=== PATIENT | male | born 1980 | race Caucasian/White ===

== ENCOUNTER 2017-04-19 11:22 | Emergency (ER) | payer MEDICAID ==
[2017-04-19 11:45] VITALS: TEMP 98.9
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
--- NOTE | 2017-04-19 12:50 | RAD ---
PROCEDURE: Left Foot Radiographs. HISTORY: foot pain s/p injury yesterday COMPARISON: None. FINDINGS: BONES: Normal. No fracture. JOINTS: Normal. SOFT TISSUES: Normal. OTHER FINDINGS: None. IMPRESSION: Normal left foot radiographs.
[2017-04-19 13:29] VITALS: BP 120/80; PULSE 85; RESP 17; O2SAT 100
== END 2017-04-19 13:38 | disposition home or self-care (01) ==
LOC: ED 11:22
DX: S99.922A Unspecified injury of left foot, initial encounter (principal); W01.0XXA Fall on same level from slipping, tripping and stumbling without subsequent striking against object, initial encounter; Y93.01 Activity, walking, marching and hiking; Y92.89 Other specified places as the place of occurrence of the external cause
CPT/HCPCS: 73630; 96372; 99284; J1885

== ENCOUNTER 2017-12-05 20:31 | Inpatient (IN) | payer MEDICAID ==
[2017-12-05] MEDS ORDERED: Iohexol 240 (50 ml) ONE (22:17)
--- NOTE | 2017-12-05 22:37 | ED PDOC ---
Arrival/HPI - General Chief Complaint: GI Problem Time Seen by Provider: 12/05/17 21:35 Historian: Patient - History of Present Illness Narrative History of Present Illness (Text): 12/05/17 22:05 37 year old male, whose past medical history includes history of blood stool (1 year ago), presents to the emergency department complaining of blood in the stool yesterday and today. Patient reports similar symptoms one year ago and states he stopped eating red meat which resolved symptoms, but has not had red meat since. Patient states it might haven been from the dye from red potatoes chips he ate earlier. Patient denies any fever, chills, chest pain, shortness of breath, abdominal pain, nausea, vomiting, diarrhea, urinary symptoms, back pain, neck pain, headache, dizziness, or any other complaints. Time/Duration: Other (2 days) Symptom Onset: Sudden Symptom Course: Unchanged Activities at Onset: Light Context: Home Past Medical History - Provider Review Nursing Documentation Reviewed: Yes - Infectious Disease Hx of Infectious Diseases: None - Tetanus Immunization Tetanus Immunization: Unknown - Psychiatric Hx Substance Use: No - Anesthesia Hx Anesthesia: No Family/Social History - Physician Review Nursing Documentation Reviewed: Yes Family/Social History: No Known Family HX Smoking Status: Current Some Days Smoker Hx Alcohol Use: Yes Hx Substance Use: No Allergies/Home Meds Allergies/Adverse Reactions: Allergies No Known Allergies Allergy (Verified 04/19/17 11:45) Home Medications: Home Meds Medication Instructions Recorded Confirmed No Known Home Med 12/05/17 12/05/17 Review of Systems - Physician Review All systems were reviewed & negative as marked: Yes - Review of Systems Constitutional: absent: Fevers, Other (Chills) Respiratory: absent: SOB Cardiovascular: absent: Chest Pain Gastrointestinal: Hematochezia. absent: Abdominal Pain, Diarrhea, Nausea, Vomiting Genitourinary Male: absent: Dysuria, Frequency, Hematuria Musculoskeletal: absent: Back Pain, Neck Pain Neurological: absent: Headache, Dizziness Physical Exam Vital Signs Reviewed: Yes Vital Signs Temp Pulse Resp BP Pulse Ox 12/05/17 21:18 97.7 F 76 18 143/92 H 98 Temperature: Afebrile Blood Pressure: Hypertensive Pulse: Regular Respiratory Rate: Normal Appearance: Positive for: Well-Appearing, Non-Toxic, Comfortable Pain Distress: None Mental Status: Positive for: Alert and Oriented X 3 - Systems Exam Head: Present: Atraumatic, Normocephalic Pupils: Present: PERRL Extroacular Muscles: Present: EOMI Conjunctiva: Present: Normal Mouth: Present: Moist Mucous Membranes Neck: Present: Normal Range of Motion Respiratory/Chest: Present: Clear to Auscultation, Good Air Exchange. No: Respiratory Distress, Accessory Muscle Use Cardiovascular: Present: Regular Rate and Rhythm, Normal S1, S2. No: Murmurs Abdomen: No: Tenderness, Distention, Peritoneal Signs Rectal: No: Hemorrhoids, Fissures Back: Present: Normal Inspection Upper Extremity: Present: Normal Inspection. No: Cyanosis, Edema Lower Extremity: Present: Normal Inspection. No: Edema Neurological: Present: GCS=15, CN II-XII Intact, Speech Normal Skin: Present: Warm, Dry, Normal Color. No: Rashes Psychiatric: Present: Alert, Oriented x 3, Normal Insight, Normal Concentration Medical Decision Making ED Course and Treatment: 12/05/17 22:10 Impression: 37 year old male presents complaining of blood in the stool that began yesterday. Patient reports similar symptoms 1 year ago. Plan: -- VBG -- CT Abd and Pelvis PO & IV Contrast -- Labs -- Blood Culture -- Urinalysis -- Reassess and disposition Progress Notes: EXAM: CT Abdomen and Pelvis With Intravenous Contrast Dictated and Authenticated by: Bony Christy MD 12/06/2017 12:10 AM IMPRESSION: 1. Diverticulosis without definite CT evidence of diverticulitis. 2. Groundglass opacities, nonspecific. DDX: Pneumonia, pulmonary edema, interstitial lung disease, pneumonitis. Clinical correlation and follow up are recommended. 3. Mild lymphadenopathy, nonspecific. Clinical correlation is needed. 4. Incidental/non-acute findings are described above. 12/06/17 00:[address] Adams who is aware and agrees with the plan. Accepts patient into his service. - Lab Interpretations Lab Results: 12/05/17 22:50 12/05/17 22:50 Lab Results 12/05/17 22:50: Sodium 142, Chloride 104, Potassium 4.5, Carbon Dioxide 25, Anion Gap 18, BUN 15, Creatinine 1.3, Est GFR ( Amer) > 60, Est GFR (Non- Af Amer) > 60, Random Glucose 82, Calcium 10.3, Total Bilirubin 1.2, AST 26, ALT 30, Alkaline Phosphatase 76, Total Protein 7.7, Albumin 4.6, Globulin 3.1, Albumin/Globulin Ratio 1.5, Lipase 127 12/05/17 22:50: pO2 91 H, VBG pH 7.39, VBG pCO2 45.0, VBG HCO3 27.2, VBG Total CO2 28.6 H, VBG O2 Sat (Calc) 98.6 H, VBG Base Excess 1.7, VBG Potassium 4.5, Sodium 137.0, Chloride 106.0, Glucose 85, Lactate 0.9, FiO2 21.0, Venous Blood Potassium 4.5 12/05/17 22:50: PT 11.2, INR 0.98 12/05/17 22:50: WBC 4.7, RBC 5.92, Hgb 17.1, Hct 49.8, MCV 84.1, MCH 28.9, MCHC 34.3, RDW 13.2, Plt Count 193, MPV 10.1, Gran % 55.5, Lymph % (Auto) 34.1, [place] % (Auto) 7.0 H, Eos % (Auto) 3.0, Baso % (Auto) 0.4, Gran # 2.60, Lymph # (Auto ) 1.6, [place] # (Auto) 0.3, Eos # (Auto) 0.1, Baso # (Auto) 0.02 I have reviewed the lab results: Yes - RAD Interpretation Radiology Orders: 12/05/17 22:16 ABD PELVIS PO & IV CONTRAST [CT] Stat - Scribe Statement The provider has reviewed the documentation as recorded by the Stef Gay Provider Scribe Attestation: All medical record entries made by the Stef were at my direction and personally dictated by me. I have reviewed the chart and agree that the record accurately reflects my personal performance of the history, physical exam, medical decision making, and the department course for this patient. I have also personally directed, reviewed, and agree with the discharge instructions and disposition. Disposition/Present on Arrival - Present on Arrival Any Indicators Present on Arrival: No History of DVT/PE: No History of Uncontrolled Diabetes: No Urinary Catheter: No History of Decub. Ulcer: No History Surgical Site Infection Following: None - Disposition Have Diagnosis and Disposition been Completed?: Yes Diagnosis: Lower GI bleeding, Diverticulosis, Interstitial lung disease Disposition: HOSPITALIZED Disposition Time: 00:43 Patient Plan: Admission Condition: GOOD Referrals: PCP,NO [Primary Care Provider] - Follow up with primary Forms: [employer] (Yoruba)
[2017-12-05 22:56] LABS: VENOUS BLOOD GAS BASE EXCESS 1.7 mmol/L (0.0-2.0); VENOUS BLOOD GAS PO2 91 mm/Hg (30-55); VENOUS BLOOD PH 7.39 (7.32-7.43)
[2017-12-05 22:58] LABS: BASO # 0.02 K/mm3 (0.0-2.0); BASO % 0.4 % (0.0-3.0); EOS # 0.1 (0.0-0.7); GRAN # 2.6 (1.4-6.5); GRAN % 55.5 % (50.0-68.0); HEMOGLOBIN 17.1 g/dL (14.0-18.0); LYMPH # 1.6 (1.2-3.4); LYMPH % 34.1 % (22.0-35.0); MEAN CELL VOLUME 84.1 fl (80.0-105.0); MEAN CORPUSCULAR HEMOGLOBIN 28.9 pg (25.0-35.0); MEAN CORPUSCULAR HGB CONC 34.3 g/dl (31.0-37.0); MEAN PLATELET VOLUME 10.1 fl (7.0-11.0); MONO # 0.3 (0.1-0.6); RBC 5.92 10^6/uL (3.5-6.1); RED CELL DISTRIBUTION WIDTH 13.2 % (11.5-14.5); WHITE BLOOD COUNT 4.7 10^3/ul (4.5-11.0)
[2017-12-05 23:04] LABS: INR 0.98 (0.93-1.08); PROTHROMBIN TIME 11.2 SECONDS (9.4-12.5)
[2017-12-05 23:07] LABS: ALB/GLOB RATIO 1.5 (1.1-1.8); ALBUMIN 4.6 g/dL (3.0-4.8); ALT/SGPT 30 U/L (7-56); AST/SGOT 26 U/L (17-59); BLOOD UREA NITROGEN 15 mg/dL (7-21); CALCIUM 10.3 mg/dL (8.4-10.5); GFR AFRICAN-AMERICAN > 60; GFR NON-AFRICAN AMERICAN > 60; LIPASE 127 U/L (23-300)
[2017-12-05] MEDS ORDERED: Iohexol 350 MG/100 ML VIAL ONE (23:10)
--- NOTE | 2017-12-06 00:10 | CT ---
EXAM: CT Abdomen and Pelvis With Intravenous Contrast CLINICAL HISTORY: 37 years old, male; Signs and symptoms; Other: Blood in stool 2x days; Additional info: Blood in stools TECHNIQUE: Axial computed tomography images of the abdomen and pelvis with intravenous contrast. All CT scans at this facility use one or more dose reduction techniques, viz.: automated exposure control; ma/kV adjustment per patient size (including targeted exams where dose is matched to indication; i.e. head); or iterative reconstruction technique. Coronal and sagittal reformatted images were created and reviewed. CONTRAST: 100 mL of OMNI 350 administered intravenously. COMPARISON: No relevant prior studies available. FINDINGS: Lung bases: Mild peripheral linear atelectasis/scarring. Scattered groundglass opacities within lung bases, uncertain chronicity. Mediastinum: Probable small hiatal hernia. ABDOMEN: Liver: Unremarkable. No mass. Gallbladder and bile ducts: No calcified stones. No ductal dilation. Pancreas: No ductal dilation. No mass. Spleen: No splenomegaly. Adrenals: No mass. Kidneys and ureters: No mass. No hydronephrosis. Stomach and bowel: Few scattered diverticula within colon. No associated inflammatory stranding. Few segmental areas of probable underdistention of colon. No definite mural thickening. No obstruction. Appendix: Normal caliber. No inflammation. PELVIS: Bladder: Unremarkable. Reproductive: Unremarkable as visualized. ABDOMEN and PELVIS: Intraperitoneal space: No significant fluid collection. No free air. Bones/joints: No acute fracture. Soft tissues: Small umbilical hernia containing fat. Tiny inguinal hernias containing fat. Vasculature: Unremarkable. No aneurysm. Lymph nodes: Several subcentimeter/few borderline enlarged short axis lymph node within upper abdomen. IMPRESSION: 1. Diverticulosis without definite CT evidence of diverticulitis. 2. Groundglass opacities, nonspecific. DDX: Pneumonia, pulmonary edema, interstitial lung disease, pneumonitis. Clinical correlation and follow up are recommended. 3. Mild lymphadenopathy, nonspecific. Clinical correlation is needed. 4. Incidental/non-acute findings are described above.
[2017-12-06] MEDS ORDERED: Sodium Chloride 0.9% 1,000 ML IV SCH ×2 (04:30→04:47)
--- NOTE | 2017-12-06 04:43 | CP.PCM.HP ---
<Lacey Funk - Last Filed: 12/06/17 05:14> History of Present Illness - History of Present Illness History of Present Illness: Lacey Funk, PGY1, H&P for Dr Adams: Admission: Rectal Bleeding, Possible Ruptured Diverticulum, Ground Glass interstitial Pulmonary Disease. CC: "bright red blood in stool" 37 year old male with no significant PMH presents for hematochezia for past two days. Pt states that he had bright red stool mixed with his stools, and noticed it on the toilet tissue when wiping after a BM. Pt has had similar episodes a year ago. Pt states that he used to eat steak at that time, and the symptoms resolved after he stopped eating steak. Pt was never evaluated by a doctor at that time. Denies melena, hemorrhoids, history of constipation, abdominal pain, rectal pain, tenesmus, nausea, vomiting, hematemesis, fever, chills, weakness, cp, sob, weakness, dizziness, recent travel. No prior EGD or colonoscopy. In ED, vitals stable. Hgb 17.1. rectal exam showed + bright red blood in rectal vault (no stool), normal rectal tone. CT abd pelvis showed diverticulosis. 12 point ROS obtained and negative, except as per HPI. PMD: [place] (in [place]) PMH: denies PSH: denies All: NKA FH: denies colon or other GI cancer SH: Lives with fiance. Social ETOH use. Daily marijuana user x 10 years. Denies other illicit drug or tobacco use. Present on Admission - Present on Admission Any Indicators Present on Admission: No History of DVT/PE: No History of Uncontrolled Diabetes: No Urinary Catheter: No Decubitus Ulcer Present: No Review of Systems - Review of Systems All systems: reviewed and no additional remarkable complaints except Review of Systems: as per HPI Past Patient History - Infectious Disease Hx of Infectious Diseases: None - Tetanus Immunizations Tetanus Immunization: Unknown - Past Social History Smoking Status: Current Some Days Smoker - PSYCHIATRIC Hx Substance Use: No - SURGICAL HISTORY Hx Surgeries: No - ANESTHESIA Hx Anesthesia: No Meds Allergies/Adverse Reactions: Allergies Allergy/AdvReac Type Severity Reaction Status Date / Time No Known Allergies Allergy Verified 04/19/17 11:45 Physical Exam - Constitutional Appears: Non-toxic, No Acute Distress - Head Exam Head Exam: ATRAUMATIC, NORMOCEPHALIC - Eye Exam Eye Exam: EOMI, PERRL. absent: Conjunctival injection, Nystagmus, Scleral icterus Pupil Exam: NORMAL ACCOMODATION, PERRL. absent: Irregular, Miosis, Mydriatic, Unequal - ENT Exam ENT Exam: Mucous Membranes Moist - Neck Exam Neck exam: Positive for: Full Rom - Respiratory Exam Respiratory Exam: Clear to Auscultation Bilateral, NORMAL BREATHING PATTERN. absent: Accessory Muscle Use, Chest Wall Tenderness, Rales, Rhonchi, Wheezes, Stridor - Cardiovascular Exam Cardiovascular Exam: RRR, +S1, +S2. absent: Bradycardia, Tachycardia, Systolic Murmur - GI/Abdominal Exam GI & Abdominal Exam: Normal Bowel Sounds, Soft. absent: Diminished Bowel Sounds , Distended, Firm, Guarding, Mass, Organomegaly, Rebound, Rigid, Tenderness - Expanded Rectal Exam Expanded Expanded Rectal Exam: Bloody Stool, Hemorrhoids (+ small internal hemorrhoids ( slightly boggy)), Heme(+)Stool, NORMAL RECTAL TONE, Tenderness (+ discomfort). absent: Fecal Impaction, Laceration, Mass - Extremities Exam Extremities exam: Positive for: normal inspection. Negative for: calf tenderness, pedal edema - Back Exam Back exam: NORMAL INSPECTION. absent: CVA tenderness (L), CVA tenderness (R) - Neurological Exam Neurological exam: Alert, Oriented x3 - Psychiatric Exam Psychiatric exam: Normal Affect, Normal Mood - Skin Skin Exam: Dry, Normal Color, Warm Results - Vital Signs Recent Vital Signs: Last Vital Signs Temp 98.1 F 12/06/17 01:05 Pulse 67 12/06/17 03:53 Resp 18 12/06/17 03:53 BP 118/66 12/06/17 03:53 Pulse Ox 99 12/06/17 03:53 - Labs Result Diagrams: 12/05/17 22:50 12/05/17 22:50 Assessment & Plan - Assessment and Plan (Free Text) Assessment: 37 year old male with prior rectal bleed, presents for hematochezia: Painless Hematochezia: 2/2 diverticular bleeding vs internal hemorrhoids - NPO - IVF - Protonix - Anusol, sitz bath - GI consult. F/u recs. Likely outpatient follow up. PPX: protonix, SCDs Discussed with Dr Adams. - Date & Time Date: 12/06/17 Time: 04:43 <Elmer Adams - Last Filed: 12/06/17 06:54> Results - Vital Signs Recent Vital Signs: Last Vital Signs Temp 98.1 F 12/06/17 01:05 Pulse 67 12/06/17 03:53 Resp 18 12/06/17 03:53 BP 118/66 12/06/17 03:53 Pulse Ox 99 12/06/17 03:53 - Labs Result Diagrams: 12/05/17 22:50 12/05/17 22:50 Attending/Attestation - Attestation I have personally seen and examined this patient.: Yes I have fully participated in the care of the patient.: Yes I have reviewed all pertinent clinical information: Yes Notes (Text): 12/06/17 06:48 Patient was seen when he was in bed # 19 in the ER. Agree with history , physical examination , assessment and plan.
[2017-12-06 08:41] LABS: URINE APPEARANCE CLEAR (CLEAR); URINE BILIRUBIN SMALL (NEGATIVE); URINE BLOOD NEGATIVE (NEGATIVE); URINE COLOR YELLOW (YELLOW); URINE GLUCOSE (UA) NEGATIVE (NEGATIVE); URINE LEUKOCYTE ESTERASE NEGATIVE Leu/uL (NEGATIVE); URINE PROTEIN NEGATIVE mg/dL (<30 mg/dL); URINE UROBILINOGEN 0.2 E.U./dL (<1 E.U./dL)
[2017-12-06 09:37] LABS: BASO # 0.01 K/mm3 (0.0-2.0); BASO % 0.3 % (0.0-3.0); EOS # 0.2 (0.0-0.7); EOS % 4.3 % (1.5-5.0); GRAN # 1.8 (1.4-6.5); GRAN % 51.9 % (50.0-68.0); LYMPH # 1.2 (1.2-3.4); LYMPH % 33.4 % (22.0-35.0); MEAN CELL VOLUME 84.2 fl (80.0-105.0); MEAN CORPUSCULAR HEMOGLOBIN 28.2 pg (25.0-35.0); MEAN CORPUSCULAR HGB CONC 33.5 g/dl (31.0-37.0); MEAN PLATELET VOLUME 9.9 fl (7.0-11.0); MONO # 0.4 (0.1-0.6); MONO % 10.1 % (1.0-6.0); RBC 5.68 10^6/uL (3.5-6.1); RED CELL DISTRIBUTION WIDTH 13.5 % (11.5-14.5); WHITE BLOOD COUNT 3.5 10^3/ul (4.5-11.0)
--- NOTE | 2017-12-06 11:04 | CP.PCM.DIS ---
Provider - Provider Date of Admission: 12/06/17 00:35 Attending physician: Taurus Harrington MD Primary care physician: NO PRIMARY CARE PROVIDER Time Spent in preparation of Discharge (in minutes): 45 Diagnosis - Discharge Diagnosis (1) Diverticulosis Status: Chronic Priority: Medium (2) Lower GI bleeding Status: Acute Priority: Medium Hospital Course - Lab Results Lab Results: Most Recent Lab Values WBC 3.5 10^3/ul (4.5-11.0) L D 12/06/17 09:00 RBC 5.68 10^6/uL (3.5-6.1) 12/06/17 09:00 Hgb 16.0 g/dL (14.0-18.0) 12/06/17 09:00 Hct 47.8 % (42.0-52.0) 12/06/17 09:00 MCV 84.2 fl (80.0-105.0) 12/06/17 09:00 MCH 28.2 pg (25.0-35.0) 12/06/17 09:00 MCHC 33.5 g/dl (31.0-37.0) 12/06/17 09:00 RDW 13.5 % (11.5-14.5) 12/06/17 09:00 Plt Count 166 10^3/uL (120.0-450.0) 12/06/17 09:00 MPV 9.9 fl (7.0-11.0) 12/06/17 09:00 Gran % 51.9 % (50.0-68.0) 12/06/17 09:00 Lymph % (Auto) 33.4 % (22.0-35.0) 12/06/17 09:00 [place] % (Auto) 10.1 % (1.0-6.0) H 12/06/17 09:00 Eos % (Auto) 4.3 % (1.5-5.0) 12/06/17 09:00 Baso % (Auto) 0.3 % (0.0-3.0) 12/06/17 09:00 Gran # 1.80 (1.4-6.5) 12/06/17 09:00 Lymph # (Auto) 1.2 (1.2-3.4) 12/06/17 09:00 [place] # (Auto) 0.4 (0.1-0.6) 12/06/17 09:00 Eos # (Auto) 0.2 (0.0-0.7) 12/06/17 09:00 Baso # (Auto) 0.01 K/mm3 (0.0-2.0) 12/06/17 09:00 PT 11.2 SECONDS (9.4-12.5) 12/05/17 22:50 INR 0.98 (0.93-1.08) 12/05/17 22:50 pO2 91 mm/Hg (30-55) H 12/05/17 22:50 VBG pH 7.39 (7.32-7.43) 12/05/17 22:50 VBG pCO2 45.0 (40-60) 12/05/17 22:50 VBG HCO3 27.2 mmol/l (21-28) 12/05/17 22:50 VBG Total CO2 28.6 mmol.L (22-28) H 12/05/17 22:50 VBG O2 Sat (Calc) 98.6 % (40-65) H 12/05/17 22:50 VBG Base Excess 1.7 mmol/L (0.0-2.0) 12/05/17 22:50 VBG Potassium 4.5 mmol/L (3.6-5.2) 12/05/17 22:50 Sodium 137.0 mmol/L (132-148) 12/05/17 22:50 Chloride 106.0 mmol/L (98-107) 12/05/17 22:50 Glucose 85 mg/dl (75-110) 12/05/17 22:50 Lactate 0.9 mmol/L (0.7-2.1) 12/05/17 22:50 FiO2 21.0 % 12/05/17 22:50 Sodium 142 mmol/L (132-148) 12/05/17 22:50 Potassium 4.5 mmol/L (3.6-5.0) 12/05/17 22:50 Chloride 104 mmol/L (98-107) 12/05/17 22:50 Carbon Dioxide 25 mmol/L (21-33) 12/05/17 22:50 Anion Gap 18 (10-20) 12/05/17 22:50 BUN 15 mg/dL (7-21) 12/05/17 22:50 Creatinine 1.3 mg/dl (0.8-1.5) 12/05/17 22:50 Est GFR ( Amer) > 60 12/05/17 22:50 Est GFR (Non-Af Amer) > 60 12/05/17 22:50 Random Glucose 82 mg/dL (70-110) 12/05/17 22:50 Calcium 10.3 mg/dL (8.4-10.5) 12/05/17 22:50 Total Bilirubin 1.2 mg/dL (0.2-1.3) 12/05/17 22:50 AST 26 U/L (17-59) 12/05/17 22:50 ALT 30 U/L (7-56) 12/05/17 22:50 Alkaline Phosphatase 76 U/L (38-126) 12/05/17 22:50 Total Protein 7.7 g/dL (5.8-8.3) 12/05/17 22:50 Albumin 4.6 g/dL (3.0-4.8) 12/05/17 22:50 Globulin 3.1 gm/dL 12/05/17 22:50 Albumin/Globulin Ratio 1.5 (1.1-1.8) 12/05/17 22:50 Lipase 127 U/L (23-300) 12/05/17 22:50 Venous Blood Potassium 4.5 mmol/L (3.6-5.2) 12/05/17 22:50 Urine Color Yellow (YELLOW) 12/06/17 08:30 Urine Appearance Clear (CLEAR) 12/06/17 08:30 Urine pH 6.0 (4.7-8.0) 12/06/17 08:30 Ur Specific [place] 1.020 (1.005-1.035) 12/06/17 08:30 Urine Protein Negative mg/dL (<30 mg/dL) 12/06/17 08:30 Urine Glucose (UA) Negative mg/dL (NEGATIVE) 12/06/17 08:30 Urine Ketones Negative mg/dL (NEGATIVE) 12/06/17 08:30 Urine Blood Negative (NEGATIVE) 12/06/17 08:30 Urine Nitrate Negative (NEGATIVE) 12/06/17 08:30 Urine Bilirubin Small (NEGATIVE) H 12/06/17 08:30 Urine Urobilinogen 0.2 E.U./dL (<1 E.U./dL) 12/06/17 08:30 Ur Leukocyte Esterase Negative Mike/uL (NEGATIVE) 12/06/17 08:30 - Hospital Course Hospital Course: Patient is a 37 year old male with a past medical history of rectal bleed who was admitted for evaluation and treatment of bright red blood in stool. With the use of physical examinations, lab work, and imaging the patient was diagnosed with and treated for painless Hematochezia secondary to diverticular bleed vs internal hemorrhoids. During their hospital stay the patient was seen by gasteroenterogist (Dr. Hoffmann) and their recommendations were both appreciated and utilized in the care for this patient. Dr. Hoffmann recommended colonoscopy in the outpatient setting. During their hospital stay the patient underwent a CT of the abdomen/pelvis which was reviewed, appreciated, and utilized in the management of the patients clinical course. The CT of the abdomen/pelvis showed diverticulosis without evidence of diverticulitis, groundglass opacities, and mild lymphadenopathy. Patient was treated with ansuol, pantoprazole, and intravenous fluids. At this time the patient is tolerating diet, hemoglobin is stable, and is medically stable for discharge. Patient understands and appreciates discharge plan. Patient instructed to follow up with primary care physicians and referrals within three to five days from discharge. Furthermore, the patient is instructed to take medications as prescribed and to return to emergency room for evaluation of intractable headache, fever, chills, dizziness, chest pain, shortness of breath, abdominal pain, nausea, vomiting, diarrhea, constipation, and urinary symptoms. This is a brief summary of the patients hospital course. Please see patient chart for full details. Discharge Exam - Head Exam Head Exam: ATRAUMATIC, NORMOCEPHALIC - Additional Findings Additional findings: - Constitutional Appears: Non-toxic, No Acute Distress - Head Exam Head Exam: ATRAUMATIC, NORMOCEPHALIC - Eye Exam Eye Exam: EOMI, PERRL. absent: Conjunctival injection, Nystagmus, Scleral icterus - ENT Exam ENT Exam: Mucous Membranes Moist - Neck Exam Neck exam: Positive for: Full Rom - Respiratory Exam Respiratory Exam: Clear to Auscultation Bilateral, NORMAL BREATHING PATTERN. absent: Accessory Muscle Use, Chest Wall Tenderness, Rales, Rhonchi, Wheezes, Stridor - Cardiovascular Exam Cardiovascular Exam: RRR, +S1, +S2. absent: Bradycardia, Tachycardia, Systolic Murmur - GI/Abdominal Exam GI & Abdominal Exam: Normal Bowel Sounds, Soft. absent: Diminished Bowel Sounds , Distended, Firm, Guarding, Mass, Organomegaly, Rebound, Rigid, Tenderness - Extremities Exam Extremities exam: Positive for: normal inspection. Negative for: calf tenderness, pedal edema - Neurological Exam Neurological exam: Alert, Oriented x3 - Psychiatric Exam Psychiatric exam: Normal Affect, Normal Mood - Skin Skin Exam: Dry, Normal Color, Warm Discharge Plan - Follow Up Plan Condition: GOOD Disposition: HOME/ ROUTINE Patient education suggested?: Yes Instructions: Gastrointestinal Bleeding Additional Instructions: Patient Instructions: Take medications as prescribed. Follow up with PMD and referrals within three to five days from discharge. Return to the emergency room for evaluation of intractable headache, fever, chills, dizziness, chest pain, shortness of breath, abdominal pain, nausea, vomiting, diarrhea, constipation, and urinary symptoms. Referrals: PCP,NO [Primary Care Provider] -
--- NOTE | 2017-12-06 13:37 | CP.PCM.CON ---
<Jj Underwood - Last Filed: 12/06/17 13:32> History of Present Illness - History of Present Illness History of Present Illness: Initial PGY4 GI Consult Note Sloan Hodge is a 37M w/ no sig med hx who presented to the ER with rectal bleeding. Pt states that he has had similar episode 2 years ago and intermittently since. He denies any associated change in bowel habits or abd pain. He states that he noticed BRBPR upon defecation and mixed with the water in the toliet. Denies any constipation. He states that he has 2 Bm daily. Denies any prolapsing hemorrhoids. Denies any weightloss, nausea, or vomiting. Denies any previous colonoscopy or EGD. No new episodes since admission PMHx: none PShx: none Social hx: denies any smoking, + social drinker, denies any illicit drug use Family hx: reviewed, denies any hx of GI malignancy Endo hx: none ROS: 12 point ROS conducted, neg other than above Past Patient History - Infectious Disease Hx of Infectious Diseases: None - Tetanus Immunizations Tetanus Immunization: Unknown - Past Social History Smoking Status: Current Some Days Smoker - CARDIAC Hx Cardiac Disorders: No - PULMONARY Hx Respiratory Disorders: No - NEUROLOGICAL Hx Neurological Disorder: No - HEENT Hx HEENT Problems: No - RENAL Hx Chronic Kidney Disease: No - ENDOCRINE/METABOLIC Hx Endocrine Disorders: No - HEMATOLOGICAL/ONCOLOGICAL Hx Blood Disorders: No - INTEGUMENTARY Hx Dermatological Problems: No - MUSCULOSKELETAL/RHEUMATOLOGICAL Hx Musculoskeletal Disorders: No Hx Falls: No - GASTROINTESTINAL Hx Gastrointestinal Disorders: No Other/Comment: one year ago experienced bloody stools, eliminated red meats and it resolved - GENITOURINARY/GYNECOLOGICAL Hx Genitourinary Disorders: No - PSYCHIATRIC Hx Psychophysiologic Disorder: No Hx Substance Use: Yes (smokes marijuana occationally) - SURGICAL HISTORY Hx Surgeries: No - ANESTHESIA Hx Anesthesia: No Meds Home Medications: Home Medication List Medication Instructions Recorded Confirmed Type Hydrocortisone [Anusol-Hc] 25 mg RC BID #1 sup 12/06/17 Rx Allergies/Adverse Reactions: Allergies Allergy/AdvReac Type Severity Reaction Status Date / Time No Known Allergies Allergy Verified 04/19/17 11:45 - Medications Medications: Current Medications Hydrocortisone (Anusol-Hc) 25 mg RC BID QUETA Last Admin: 12/06/17 12:14 Dose: Not Given Sodium Chloride (Sodium Chloride 0.9%) 1,000 mls @ 125 mls/hr IV .Q8H [facility] Pantoprazole Sodium (Protonix Inj) 40 mg IVP DAILY [facility] Last Admin: 12/06/17 12:14 Dose: 40 mg Physical Exam - Constitutional Appears: Well, No Acute Distress - Head Exam Head Exam: ATRAUMATIC, NORMOCEPHALIC - Eye Exam Eye Exam: Normal appearance - ENT Exam ENT Exam: Mucous Membranes Moist, Normal Exam - Neck Exam Neck exam: Positive for: Normal Inspection - Respiratory Exam Respiratory Exam: Clear to Auscultation Bilateral, NORMAL BREATHING PATTERN. absent: Rales, Rhonchi, Wheezes, Respiratory Distress - Cardiovascular Exam Cardiovascular Exam: REGULAR RHYTHM, +S1, +S2 - GI/Abdominal Exam GI & Abdominal Exam: Normal Bowel Sounds, Soft. absent: Diminished Bowel Sounds , Distended, Guarding, Hernia, Organomegaly, Rebound, Rigid, Tenderness - Rectal Exam Additional comments: slight blood in rectal vault with stool - Extremities Exam Extremities exam: Negative for: joint swelling, pedal edema - Neurological Exam Neurological exam: Alert, Oriented x3 - Psychiatric Exam Psychiatric exam: Normal Affect, Normal Mood - Skin Skin Exam: Dry, Intact, Normal Color, Warm Results - Vital Signs Recent Vital Signs: Last Vital Signs Temp 97.8 F 12/06/17 08:06 Pulse 60 12/06/17 08:06 Resp 20 12/06/17 08:06 BP 110/70 12/06/17 08:06 Pulse Ox 100 12/06/17 08:06 - Labs Result Diagrams: 12/06/17 09:00 12/05/17 22:50 Labs: Laboratory Results - last 24 hr 12/06/17 12/06/17 08:30 09:00 WBC 3.5 L D RBC 5.68 Hgb 16.0 Hct 47.8 MCV 84.2 MCH 28.2 MCHC 33.5 RDW 13.5 Plt Count 166 MPV 9.9 Gran % 51.9 Lymph % (Auto) 33.4 [place] % (Auto) 10.1 H Eos % (Auto) 4.3 Baso % (Auto) 0.3 Gran # 1.80 Lymph # (Auto) 1.2 [place] # (Auto) 0.4 Eos # (Auto) 0.2 Baso # (Auto) 0.01 Urine Color Yellow Urine Appearance Clear Urine pH 6.0 Ur Specific [place] 1.020 Urine Protein Negative Urine Glucose (UA) Negative Urine Ketones Negative Urine Blood Negative Urine Nitrate Negative Urine Bilirubin Small H Urine Urobilinogen 0.2 Ur Leukocyte Esterase Negative Assessment & Plan - Assessment and Plan (Free Text) Assessment: Sloan Hodge is a 37M w/ no sig hx who presents to the ED with rectal bleeding. Rectal bleeding; etiology likely hemorrhoidal versus diverticular constipation diverticulosis on CT Plan: -start fiber supplement -advance diet to regular -recommend oupt colonoscopy -outpt contact information given -repeat hgb stable -recommend going to the ER if bleeding continues d/w lyle Warren <Gino Arevalo - Last Filed: 12/06/17 13:49> Meds - Medications Medications: Current Medications Hydrocortisone (Anusol-Hc) 25 mg RC BID [facility] Last Admin: 12/06/17 12:14 Dose: Not Given Sodium Chloride (Sodium Chloride 0.9%) 1,000 mls @ 125 mls/hr IV .Q8H [facility] Pantoprazole Sodium (Protonix Inj) 40 mg IVP DAILY [facility] Last Admin: 12/06/17 12:14 Dose: 40 mg Results - Vital Signs Recent Vital Signs: Last Vital Signs Temp 97.8 F 12/06/17 08:06 Pulse 60 12/06/17 08:06 Resp 20 12/06/17 08:06 BP 110/70 12/06/17 08:06 Pulse Ox 100 12/06/17 08:06 - Labs Result Diagrams: 12/06/17 09:00 12/05/17 22:50 Labs: Laboratory Results - last 24 hr 12/06/17 12/06/17 08:30 09:00 WBC 3.5 L D RBC 5.68 Hgb 16.0 Hct 47.8 MCV 84.2 MCH 28.2 MCHC 33.5 RDW 13.5 Plt Count 166 MPV 9.9 Gran % 51.9 Lymph % (Auto) 33.4 [place] % (Auto) 10.1 H Eos % (Auto) 4.3 Baso % (Auto) 0.3 Gran # 1.80 Lymph # (Auto) 1.2 [place] # (Auto) 0.4 Eos # (Auto) 0.2 Baso # (Auto) 0.01 Urine Color Yellow Urine Appearance Clear Urine pH 6.0 Ur Specific [place] 1.020 Urine Protein Negative Urine Glucose (UA) Negative Urine Ketones Negative Urine Blood Negative Urine Nitrate Negative Urine Bilirubin Small H Urine Urobilinogen 0.2 Ur Leukocyte Esterase Negative Attending/Attestation - Attestation I have personally seen and examined this patient.: Yes I have fully participated in the care of the patient.: Yes I have reviewed all pertinent clinical information: Yes Notes (Text): 12/06/17 13:48 37 year old male with BRBPR, likely hemorrhoidal. No anemia. Recommend outpatient colonoscopy.
[2017-12-06 15:38] VITALS: RESP 18; O2SAT 95
[2017-12-06 15:41] VITALS: BP 156/87; PULSE 104; TEMP 98.5
== END 2017-12-06 18:15 | disposition home or self-care (01) | DRG 175 ==
LOC: ED 20:31 → ERH 12-06 00:35 → 5RSO 12-06 04:11
PROVIDERS: ADMIT Internal Medicine; ATTEND Internal Medicine
DX: K92.1 Melena (principal); K57.90 Diverticulosis of intestine, part unspecified, without perforation or abscess without bleeding; K64.8 Other hemorrhoids; F17.200 Nicotine dependence, unspecified, uncomplicated; R59.0 Localized enlarged lymph nodes; F12.90 Cannabis use, unspecified, uncomplicated; K59.00 Constipation, unspecified

== ENCOUNTER 2018-02-26 08:55 | Emergency (ER) | payer OTHER, MEDICAID ==
[2018-02-26 09:07] VITALS: RESP 18
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
--- NOTE | 2018-02-26 10:32 | RAD ---
PROCEDURE: Radiographs of the right elbow. HISTORY: Injury COMPARISON: No prior. FINDINGS: BONES: Normal. No fracture. JOINTS: Normal. No osteoarthritis. SOFT TISSUES: Anterior and posterior fat pad signs. Presumptive evidence for radial head fracture. However common no discrete fracture line identified. JOINT EFFUSION: None. OTHER FINDINGS: None. IMPRESSION: Soft tissue swelling, soft tissue injury including positive fat pad signs presumptive evidence for radial head fracture although no fracture is seen. Recommend follow-up radiographs in 07-10 days if clinically indicated.
--- NOTE | 2018-02-26 10:32 | RAD ---
PROCEDURE: Radiographs of the Right Forearm HISTORY: Injury COMPARISON: February 26, 2018. Right elbow a reported separately. TECHNIQUE: Frontal and lateral views obtained. FINDINGS: BONES: No fracture or destructive lesion. JOINT SPACES: Unremarkable. OTHER FINDINGS: None. IMPRESSION: Unremarkable radiographs of the right forearm.
[2018-02-26 11:14] VITALS: BP 125/79; PULSE 68; TEMP 98.2; O2SAT 98
== END 2018-02-26 11:15 | disposition home or self-care (01) ==
LOC: ED 08:55
DX: S53.401A Unspecified sprain of right elbow, initial encounter (principal); S50.01XA Contusion of right elbow, initial encounter; W17.89XA Other fall from one level to another, initial encounter; Y93.59 Activity, other involving other sports and athletics played individually